=== PATIENT | female | born 1980 | race Caucasian/White ===

== ENCOUNTER 2018-09-15 17:26 | Emergency (ER) | payer OTHER ==
[2018-09-15] MEDS: IBUPROFEN 600 MG TAB PO (20:46)
[2018-09-15] MEDS: CLINDAMYCIN 300 MG INJ IM (20:51)
== END 2018-09-15 22:43 | disposition left against medical advice (07) ==
LOC: FTE 17:26
DX: L08.9 Local infection of the skin and subcutaneous tissue, unspecified (principal); F17.210 Nicotine dependence, cigarettes, uncomplicated
CPT/HCPCS: 96372; 99284-25